=== PATIENT | female | born 1990 ===

== ENCOUNTER → 2025-01-25 08:56 | Oncology outpatient (ONC) | payer OTHER, SELFPAY ==
[2025-01-25 09:05] VITALS: BP 103/53; PULSE 67; RESP 12; TEMP 36.4; O2SAT 99
[2025-01-25] MEDS: IRON SUCROSE 200 MG in SODIUM CHLORIDE 0.9% 100 ML 220 MG IV (09:26)
[2025-01-25 10:38] VITALS: BP 101/62; PULSE 66; RESP 12; TEMP 37; O2SAT 99
== END ==
LOC: ONC 08:56
PROVIDERS: Referring Provider Naturopath; Visit Provider Naturopath
DX: D50.9 Iron deficiency anemia, unspecified (principal); N93.8 Other specified abnormal uterine and vaginal bleeding
CPT/HCPCS: 96365; J1756; J7050